=== PATIENT | female | born 1965 | race Caucasian/White ===

== ENCOUNTER 2017-09-05 05:45 | Day surgery (SDC) | payer OTHER ==
[~2017-09-05 05:45] MED LIST: CLINDAMYCIN HC150 MG PO; COLD-FLU M-SYM1 EACH PO
== END 2017-09-05 11:05 | disposition home or self-care (01) ==
LOC: CIR.AMB 05:45
DX: M77.11 Lateral epicondylitis, right elbow (principal); S56.511A Strain of other extensor muscle, fascia and tendon at forearm level, right arm, initial encounter